=== PATIENT | male | born 1950 | race Caucasian/White ===

== ENCOUNTER 2018-03-09 17:04 | Inpatient (IN) | payer OTHER ==
[~2018-03-09] VITALS: Ht 180.3 cm; Wt 124.0 kg
--- NOTE | ~2018-03-09 | CATHLAB ---
[facility] [address] [place] [address] INVASIVE PROCEDURE REPORT Name: DARA GUALLPA Room #: 214-P [facility] IN ..#: [id number] Admission: 03/09/18 Attend Phys: Tam Moralez MD Discharge: 03/11/18 Date of : 50 Date of Service: 03/12/18 0901 Report #: [id number] THIS REPORT FOR: //name// APPROVED REPORT Study performed: 03/10/2018 09:22:12 Patient Details Patient Status: In-Patient Room #: The patient is a 67 year-old male Event Personnel Diego Stokes Beater Boss, John Paz RN RN, Imani Sauer RTR, Robin Khan Roberta Monitor Procedures Performed Art Access - R femoral artery* 80188 Initial Mod Sed Same Phys/QHP Gr5y 668344 18654 Mod Sed Same Phys/QHP Ea 770624 Left Heart Cath w/or w/o Coronaries 7237904 [facility] Aortogram Abdominal Peripheral Angio 961409 PTCA Single Vessel CIRC 7930953 PCISINGLE GRAY Place w/wo Plasty Single LAD 215061 Indication Chest pain Procedure Narrative The Right Groin^ was infiltrated with 1% Lidocaine subcutaneous anesthesia. A PINNACLE 6FR Sheath #[id number] sheath was inserted into the RFA^. Coronary angiography was performed using coronary diagnostic catheters. The right coronary system was accessed and visualized with a JR4 catheter. The left coronary system was accessed and visualized with a JL4 catheter. The left ventricle was accessed and visualized with a STR.PIG catheter. The patient tolerated the procedure well and there were no complications associated with the procedure. There was no hematoma. Intraoperative Conscious Sedation Fentanyl 100 mcg Versed 2 mg Fluoro Time: 23.30 minutes Dose: DAP 65058.80 cGycm2 3095 mGy Contrast Type and Amount: Visipaque 200 ml Hemodynamics The aortic pressure is 183/77 mmHg with a mean of 53 mmHg. The left [facility] [address] [place] [address] INVASIVE PROCEDURE REPORT Name: RODGEREVELYNDARA Room #: 214-P [facility] IN ..#: [id number] Admission: 03/09/18 Attend Phys: Tam Moralez MD Discharge: 03/11/18 Date of : 50 Date of Service: 03/12/18 0901 Report #: [id number] ventricular pressure is 173/-1 mmHg with a mean of mmHg. The left ventricular end diastolic pressure is 26 mmHg. PCI Technique Lesion Percutaneous coronary intervention was performed on the acute marginal segment(s)mid circumflex artery segment. A LAUNCHER 6FR AR1 #999005 Guide Catheter was used to engage the ostium. A Luge Wire .014 x 182CM #[id number] Interventional Guidewire was used to cross the lesion. BALLOON DILATION A Balloon catheter Sprinter OTW 2.5 x 15 #[id number] was inserted and inflated up to 16atm for 43seconds. 2ND BALLOON WAS A MOZEC NC 3.0 X13MM. 1ST INFLA.20ATM FOR 32 SEC - 2ND INFLA. 22ATM FOR 32 SEC. 3RD BALLOON: NC TREK 3.71D16XB 1ST IFLA.20 MELANIE FOR 36 SEC PCI Technique Lesion 2 Percutaneous coronary intervention was performed on the mid left anterior descending artery segment. A LAUNCHER 6FR EBU 4 #171310 Guide Catheter was used to engage the LAD ostium. Balloon Dilation A Balloon catheter Sprinter OTW 2.5 x 15 #[id number] was inserted and inflated up to 6atm for 11seconds. Additional Inflation: 8atm for 19seconds. Additional Inflation: 6atm for 10seconds. 4TH INFLA. 14ATM FOR 27SEC. Stent Deployment A stent 3.0mm x 17mm EluNir RX was inserted and inflated up to 14atm for 23seconds. Additional Inflation: 18atm for 22seconds. PCI Technique Lesion Percutaneous coronary intervention was performed on the mid left anterior descending artery segment. STENT DEPLOYMENT A stent RESOLUTE ANGELINA OTW 3.0 X 15 #[id number] was inserted and inflated up to 16atm for 23seconds. Additional Inflation: 20atm for 22seconds. THIS STENT PLACED POXIMAL TO THE ELUNIR STENT. PCI Technique Lesion 3 Percutaneous coronary intervention was performed on the lateral first obtuse marginal branch segment. A LAUNCHER 6FR EBU 4 #040727 Guide Catheter was used to engage the ostium. A Luge Wire .014 x 182CM #[id number] Interventional Guidewire was used to cross the lesion. [facility] [address] [place] [address] INVASIVE PROCEDURE REPORT Name: DARA GUALLPA Room #: 214-P DIS IN M.Baljeet.#: [id number] Admission: 03/09/18 Attend Phys: Tam Moralez MD Discharge: 03/11/18 Date of : 50 Date of Service: 03/12/18 0901 Report #: [id number] Balloon Dilation A Balloon catheter Sprinter OTW 2.25 x 12 #[id number] was inserted and inflated up to 8atm for 24seconds. Additional Inflation: 12atm for 49seconds. 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 Previously placed 24 mm long Promus stent 2.75. Focal area within the stent postdilated with a noncompliant balloon 3.25 up to 3.4 mm yielding 0% residual This is filling a moderately large OM system. I did not re-stent this segment. #2 successful PTCA stent of complex proximal LAD lesion difficult dilatation initial placement of a 30 by 17Elunir drug-eluting stent post I to 3.2 mm. With proximal dissection Then placement of a 30 by 15 [place] drug-eluting stent which slightly overlap the proximal edge of the prior stent. All postdilated 20 melanie with stent balloon. 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 This was dilated through the stent placed in the LAD. With a residual of less than 30% so 8 good result obtained. #5 normal left ventricular size with normal left ventricular size and function EF 65% #6 abdominal aorta is patent without aneurysm. Single bilateral renal arteries remain patent Recommendations and plan: Continue aggressive risk factor modification. Dual antiplatelet therapy indefinitely with this evidence of in-stent restenosis and now 2 new stents placed to the LAD system. Patient is feeling medically stable for transfer to the CCU. We'll follow post stent protocol. This is in the setting of a non-STEMI. <ELECTRONICALLY SIGNED> By: Diego Stokes MD, [facility] 03/12/18900 0 0 Diego Stokes MD, FACC /INF
--- NOTE | ~2018-03-09 | EKG ---
[address] [address] ELECTROCARDIOGRAM REPORT Name: DARA GUALLPA Room #: 214-P ADM IN M.R.#: [id number] Admission: 03/09/18 Attend Phys: Tam Moralez MD Discharge: Date of : 50 Report #: [id number] THIS REPORT FOR: //name// [facility] ED Test Date: 2018-03-09 Test Time: 17:22:07 Pat Name: DARA GUALLPA Department: Room: 214 Gender: M Weather Forcaster: GEOVANNI : 1950 Requested By: Yevgeniy Horton Order Number: [id number] MD: Bobby Garcia Measurements Intervals [place] Rate: 50 P: -5 DC: 139 QRS: -29 QRSD: 103 T: 26 QT: 475 QTc: 434 Interpretive Statements Sinus bradycardia Abnormal R-wave progression, early transition Left ventricular hypertrophy No previous ECG available for comparison Electronically Signed On 03-10-2018 9:14:02 DYE EXPERT by Bobby Garcia [email or web address] <ELECTRONICALLY SIGNED> By: Bobby Garcia MD 03/10/18 0914 172 1722 Bobby Garcia MD /YEIMI
--- NOTE | ~2018-03-09 | HC ---
[facility] [place] [address] CONSULTATION Name: DARA GUALLPA Room #: 214-P ADM IN M.R.#: [id number] Admission: 03/09/18 Attend Phys: Tam Moralez MD Discharge: Date of : 50 Report #: [id number] THIS REPORT FOR: //name// CC: Tam Olguin CARDIOLOGY CONSULTATION HISTORY OF PRESENT ILLNESS: The patient is a 67-year-old male. He presents via EMS with chest pain and pressure, which started sometime early this afternoon. He has been having on and off exertional chest pain for the last 4-5 days. Marked decrease in exercise tolerance, although he is relatively inactive. He denies any PND or orthopnea, but there has certainly been decreased exercise tolerance. He has had a stent placed exactly 3 years ago, 03/2015, at [facility]. He does not know which vessel and was told that there was a 60% blockage in another vessel. We do not have that report, but it would be helpful. He has been seen in [facility] and had, what he believes to be, a stress test this summer. MEDICATIONS: He has been compliant with only medications rosuvastatin and lisinopril. Ran out of aspirin a week ago. His other medications are allegedly Prozac, Desyrel, Protonix and Metamucil. ALLERGIES: VOLTAREN. SOCIAL HISTORY: He is retired. He is single, no children. He lives independently. Minimal alcohol use. No tobacco. FAMILY HISTORY: No premature coronary disease. PHYSICAL EXAMINATION: VITAL SIGNS: He does not appear to be in significant distress, but states he still has low-grade substernal discomfort. VITAL SIGNS: Blood pressure 150/80, pulse is 60s. HEENT: Eyes reveal no xanthelasmas. Pharynx is clear. NECK: Shows preserved upstrokes, without JVD or bruits. LUNGS: Clear. CARDIAC EXAMINATION: Regular rate and rhythm, S1, S2. There is no significant murmur or gallop. ABDOMEN: Soft. No HSM or abdominal bruit. EXTREMITIES: Reveal no edema. Distal pulses intact, but diminished. NEUROLOGIC: Nonfocal. SKIN: Warm and dry, without xanthoma or ulcer. MUSCULOSKELETAL: Mild arthritic changes. ASSESSMENT: 1. Aax-BQ-wycojebyh myocardial infarction. Positive troponin 0.11 (nonspecific [facility] [address] [place] [address] CONSULTATION Name: DARA GUALLPA Room #: 214-P [facility] IN M.R.#: [id number] Admission: 03/09/18 Attend Phys: Tam Moralez MD Discharge: Date of : 50 Report #: [id number] EKG changes, no acute infarct). 2. Coronary artery disease with history of stent placement, single vessel, one stent 03/2015. 3. Hypertension. 4. Hypercholesterolemia. 5. Depression. 6. Reflux. RECOMMENDATIONS AND PLAN: Sublingual nitro. Repeat EKG. CCU. We will repeat serial enzymes and EKG. Echo Doppler in the morning and proceed to the catheterization lab to delineate the anatomy. We will proceed sooner if I can get him pain free. The plan has been discussed with the patient; there is no family present. He has a primary care physician at [facility]. By: 1848 [id number] Diego Stokes MD, FACC /nt
--- NOTE | ~2018-03-09 | EKG ---
[address] [address] ELECTROCARDIOGRAM REPORT Name: DARA GUALLPA Room #: 214-P ADM IN M.R.#: [id number] Admission: 03/09/18 Attend Phys: Tam Moralez MD Discharge: Date of : 50 Report #: [id number] THIS REPORT FOR: //name// [facility] ED Test Date: 2018-03-09 Test Time: 18:41:58 Pat Name: DARA GUALLPA Department: Room: 214 Gender: M Director Diabetes: GEOVANNI : 1950 Requested By: Diego Stokes Order Number: [id number] MD: Bobby Garcia Measurements Intervals [place] Rate: 65 P: 9 [place]: 151 QRS: -36 QRSD: 97 T: 34 QT: 450 QTc: 468 Interpretive Statements Sinus rhythm Abnormal R-wave progression, early transition Left ventricular hypertrophy No previous ECG available for comparison Electronically Signed On 03-10-2018 9:14:24 PERSONAL LOAN SPECIALIST by Bobby Garcia [email or web address] <ELECTRONICALLY SIGNED> By: Bobby Garcia MD 03/10/18 0914 184 1841 Bobby Garcia MD /YEIMI
--- NOTE | ~2018-03-09 | 2DMMODE ---
[facility] [place] [address] 2 D/M-MODE ECHOCARDIOGRAM Name: DARA GUALLPA Room #: 214-P ADM IN M.R.#: [id number] Admission: 03/09/18 Attend Phys: Tam Moralez MD Discharge: Date of : 50 Date of Service: 03/10/18 0951 Report #: [id number] THIS REPORT FOR: //name// APPROVED REPORT Study performed: 03/10/2018 08:41:07 EXAM: Comprehensive 2D, Doppler, and color-flow Echocardiogram Patient Location: Echo lab Room #: 214 Status: routine BSA: 2.38 HR: 48 bpm BP: 135/66 mmHg Rhythm: Bradycardia/nsr Other Information Study Quality: Good Indications Non STEMI Chest Pain Hx: CAD, stent, HTN, HLP 2D Dimensions RVDd: 40.28 mm IVSd: 12.53 (7-11mm) LVOT Diam: 21.59 (18-24mm) LVDd: 50.16 mm PWd: 11.92 (7-11mm) Ascending Ao: 31.72 (22-36mm) LVDs: 30.43 (25-40mm) Aortic Root: 29.77 mm Volumes Left Atrial Volume (Systole) Single Plane 4CH: 67.90 mL Single Plane 2CH: 87.66 mL LA ESV Index: 35.00 mL/m2 Aortic Valve AoV Peak Orville.: 1.81 m/s AO Peak Gr.: 13.10 mmHg LVOT Max P.50 mmHg LVOT Max V: 1.27 m/s RENU Vmax: 2.58 cm2 Mitral Valve E/A Ratio: 1.4 [facility] [address] [place] [address] [place] [address] 2 D/M-MODE ECHOCARDIOGRAM Name: SALONIDARA Room #: [facility] IN ..#: [id number] Admission: 03/09/18 Attend Phys: Tam Moralez MD Discharge: Date of : 50 Date of Service: 03/10/18 0951 Report #: [id number] MV Decel. Time: 226.87 ms MV E Max Orville.: 0.87 m/s MV A Orville.: 0.61 m/s MV PHT: 65.79 ms IVRT: 64.59 ms Pulmonary Valve PV Peak Orville.: 1.15 m/s PV Peak Gr.: 5.25 mmHg Pulmonary Vein P Vein S: 0.72 m/s P Vein A: 0.31 m/s P Vein D: 0.54 m/s P Vein A Dur.: 110.7 msec P Vein S/D Ratio: 1.33 Tricuspid Valve TR Peak Orville.: 2.59 m/s RAP Estimate: 5.00 mmHg TR Peak Gr.: 26.83 mmHg PA Pressure: 32.00 mmHg Left Ventricle The left ventricle is normal size. There is normal LV segmental wall motion. Mild concentric left ventricular hypertrophy. Left ventricular systolic function is normal. LVEF is 55-60%. Moderate diastolic dysfunction is present (pseudonormal filling). Right Ventricle The right ventricle is normal size. The right ventricular systolic function is normal. Atria Left atrium is mildly dilated. The right atrium size is normal. Aortic Valve The aortic valve is normal in structure and mildly thickened. Trace to mild aortic regurgitation. There is no aortic valvular stenosis. Mitral Valve The mitral valve is normal in structure. Moderate mitral regurgitation. Tricuspid Valve The tricuspid valve is normal in structure. Mild tricuspid regurgitation. Estimated PAP is 30-35mmHg. [address] [address] 2 D/M-MODE ECHOCARDIOGRAM Name: [facility] Room #: [address] [place] [address] IN M.R.#: [id number] Admission: 03/09/18 Attend Phys: Tam Moralez MD Discharge: Date of : 50 Date of Service: 03/10/18 0951 Report #: [id number] Pulmonic Valve The pulmonary valve is normal in structure. Trace pulmonic regurgitation. Great Vessels The aortic root is normal in size. The ascending aorta is normal in size. IVC is normal in size and collapses >50% with inspiration. Pericardium There is no pericardial effusion. <Conclusion> The left ventricle is normal size. Mild concentric left ventricular hypertrophy. LVEF is 55-60%. Moderate diastolic dysfunction is present (pseudonormal filling). The right ventricle is normal size. Left atrium is mildly dilated. Trace to mild aortic regurgitation. Moderate mitral regurgitation. Mild tricuspid regurgitation. Estimated PAP is 30-35mmHg. The aortic root is normal in size. There is no pericardial effusion. <ELECTRONICALLY SIGNED> By: Diego Stokes MD, [facility] 03/10/18950 0 0 Diego Stokes MD, FACC /INF
--- NOTE | ~2018-03-09 | EKG ---
[address] [place] [address] ELECTROCARDIOGRAM REPORT Name: DARA GUALLPA Room #: 214-P ADM IN M.R.#: [id number] Admission: 03/09/18 Attend Phys: Tam Moralez MD Discharge: Date of : 50 Report #: [id number] THIS REPORT FOR: //name// [facility] Test Date: 2018-03-11 Test Time: 08:16:47 Pat Name: DARA GUALLPA Department: Room: 214 P Gender: M Dope Edger: EDITH : 1950 Requested By: Kathy Jorgensen Order Number: [id number] MD: Atul Escamilla Measurements Intervals [place] Rate: 49 P: -32 [place]: 152 QRS: -34 QRSD: 103 T: 8 QT: 475 QTc: 429 Interpretive Statements Sinus bradycardia Abnormal R-wave progression, early transition Compared to ECG 03/09/2018 18:41:58 Heart rate has slowed Electronically Signed On 03-11-2018 11:03:37 BUSINESS PROPOSAL REP by Atul Escamilla [email or web address] <ELECTRONICALLY SIGNED> By: Atul Escamilla MD, [facility] 03/11/18 1103 5 5 Atul Escamilla MD, [facility] /EPI
[2018-03-09 17:05] VITALS: BP 167/81
[2018-03-09] MEDS ORDERED: PROTONIX40 M1 PO (17:17)
[2018-03-09] MEDS ORDERED: LISINOPRIL10 MG PO (17:17)
[2018-03-09] MEDS ORDERED: CRESTOR10 MG PO (17:18)
[2018-03-09] MEDS ORDERED: DICYCLOMINE HCL20 MG PO (17:20)
[2018-03-09] MEDS ORDERED: CELECOXIB100 MG PO (17:21)
[2018-03-09] MEDS ORDERED: PROZAC20 MG PO (17:21)
[2018-03-09] MEDS ORDERED: TRAZODONE HCL50 MG PO (17:22)
[2018-03-09] MEDS ORDERED: TRIAMCINOLONE A80 G2 TOP (17:22)
[2018-03-09] MEDS ORDERED: MUPIROCIN22 GM TOP (17:23)
[2018-03-09] MEDS ORDERED: METAMUCIL1 EAC1 PO (17:23)
[2018-03-09 17:24] LABS: ABSOLUTE NEUTROPHILS 4.4 thou/uL (1.4-8.2); BASOPHILS 1.3 % (0.0-2.0); HEMATOCRIT 44.3 % (42.0-52.0); HEMOGLOBIN 15.3 gm/dL (14.0-18.0); LYMPHOCYTES 23.4 % (24.0-44.0); MCH 31.4 pg (26.0-34.0); MCHC 34.5 g/dL (28.0-37.0); MCV 90.9 fL (80.0-100.0); PLATELET COUNT 180 thou/uL (150-400); POLYS 65.3 % (36.0-66.0); RBC 4.87 mil/uL (4.50-6.00); RDW 13.3 % (10.5-14.5); WBC 6.8 thou/uL (4.0-11.0)
[2018-03-09] MEDS ORDERED: IBUPROFEN 800800 M1 PO (17:24)
[2018-03-09 17:31] LABS: CREATININE 1.1 mg/dL (0.7-1.3); POTASSIUM 3.7 mmol/L (3.5-5.1)
[2018-03-09 17:40] LABS: TROPONIN-I 0.11 ng/mL (<0.06)
[2018-03-09 18:32] VITALS: BP 157/82
[2018-03-09 20:03] VITALS: BP 145/79
[2018-03-09 21:00] VITALS: BP 126/70
[2018-03-09 21:37] VITALS: BP 130/66
[2018-03-09 23:47] VITALS: BP 136/62
[2018-03-10 04:31] VITALS: BP 107/70
[2018-03-10 07:14] LABS: CALCIUM 9.2 mg/dL (8.5-10.1); CREATININE 1.3 mg/dL (0.7-1.3); POTASSIUM 3.6 mmol/L (3.5-5.1)
[2018-03-10 07:30] VITALS: BP 135/66
[2018-03-10 12:19] LABS: CHOLESTEROL 170 mg/dL (<200); HDL CHOLESTEROL 39 mg/dL (>40); LDL CHOLESTEROL 107 mg/dL (<100); TC:HDL 4.4 Ratio (Not establshd); TRIGLYCERIDE 122 mg/dL (<150); VLDL 24 mg/dL (<40)
[2018-03-10 15:00] VITALS: BP 144/85
[2018-03-10 16:05] LABS: URINE BILIRUBIN NEGATIVE (Negative); URINE BLOOD 3+ (Negative); URINE CLARITY CLEAR; URINE COLOR YELLOW; URINE GLUCOSE-RANDOM* NEGATIVE (Negative); URINE KETONES NEGATIVE (Negative); URINE LEUKOCYTES NEGATIVE (Negative); URINE NITRITE NEGATIVE (Negative); URINE PROTEIN (DIPSTICK) 1+ (Negative); URINE UROBILINOGEN 0.2 E.U./dl (0.2-1.0)
[2018-03-10 16:13] LABS: BACTERIA None Seen /HPF (None Seen); CASTS None Seen /LPF (None Seen); CRYSTALS None Seen /LPF (None Seen); SQUAMOUS None Seen /LPF (0-3); URINE RBC >20 Many /HPF (0-2); URINE WBC None Seen /HPF (0-5)
[2018-03-10 20:07] VITALS: BP 132/71
[2018-03-10 23:16] VITALS: BP 149/64
[2018-03-11 05:12] VITALS: BP 134/66
[2018-03-11 05:36] LABS: HEMATOCRIT 39.3 % (42.0-52.0); HEMOGLOBIN 13.4 gm/dL (14.0-18.0); MCH 31.4 pg (26.0-34.0); MCHC 34.1 g/dL (28.0-37.0); MCV 92.1 fL (80.0-100.0); RBC 4.27 mil/uL (4.50-6.00); RDW 13.7 % (10.5-14.5); WBC 7.6 thou/uL (4.0-11.0)
[2018-03-11 05:54] LABS: CALCIUM 8.1 mg/dL (8.5-10.1); CREATININE 1.1 mg/dL (0.7-1.3); POTASSIUM 3.6 mmol/L (3.5-5.1); TOTAL BILIRUBIN 0.5 mg/dL (<0.1-1.0); TOTAL PROTEIN 5.9 g/dL (6.4-8.2)
[2018-03-11 05:58] LABS: TROPONIN-I 1.73 ng/mL (<0.06)
[2018-03-11 09:04] VITALS: BP 112/59
[2018-03-11] MEDS ORDERED: TOPROL XL25 MG PO (09:32)
[2018-03-11] MEDS ORDERED: EFFIENT10 MG PO (09:32)
[2018-03-11] MEDS ORDERED: ASPIRIN325 PO ×2 (09:32→12:06)
[2018-03-11] MEDS ORDERED: COZAAR 25 MG TA25 M1 PO (12:05)
[2018-03-11] MEDS ORDERED: LISINOPRIL10 MG PO (12:09)
[2018-03-11 13:06] VITALS: BP 112/59
== END 2018-03-11 16:20 | disposition home or self-care (01) | DRG 246 ==
LOC: ER 17:04 → 2N 18:18 → EROBS 18:18 → 2N 21:03
PROVIDERS: Emergency Medicine; Hospitalist; Nurse Practitioner Adult Health
DX: T82.855A Stenosis of coronary artery stent, initial encounter (principal); I21.4 Non-ST elevation (NSTEMI) myocardial infarction; Y83.8 Other surgical procedures as the cause of abnormal reaction of the patient, or of later complication, without mention of misadventure at the time of the procedure; E78.00 Pure hypercholesterolemia, unspecified; I10 Essential (primary) hypertension; K21.9 Gastro-esophageal reflux disease without esophagitis; F32.9 Major depressive disorder, single episode, unspecified; I25.10 Atherosclerotic heart disease of native coronary artery without angina pectoris; I48.91 Unspecified atrial fibrillation; E78.5 Hyperlipidemia, unspecified; Y92.89 Other specified places as the place of occurrence of the external cause; Z95.5 Presence of coronary angioplasty implant and graft; Z88.8 Allergy status to other drugs, medicaments and biological substances; Z79.82 Long term (current) use of aspirin; Z79.899 Other long term (current) drug therapy; I25.2 Old myocardial infarction
CPT/HCPCS: 10081

== ENCOUNTER 2018-04-29 21:10 | Emergency (ER) | payer OTHER ==
[~2018-04-29] VITALS: Ht 180.3 cm; Wt 117.9 kg
[~2018-04-29 21:10] MED LIST: ASPIRIN325 PO; CELECOXIB100 MG PO; COZAAR 25 MG TA25 M1 PO; CRESTOR10 MG PO; DICYCLOMINE HCL20 MG PO; EFFIENT10 MG PO; IBUPROFEN 800800 M1 PO; LISINOPRIL10 MG PO; METAMUCIL1 EAC1 PO; MUPIROCIN22 GM TOP; PROTONIX40 M1 PO; PROZAC20 MG PO; TOPROL XL25 MG PO; TRAZODONE HCL50 MG PO; TRIAMCINOLONE A80 G2 TOP
[2018-04-29 22:08] LABS: HEMATOCRIT 43.5 % (42.0-52.0); HEMOGLOBIN 14.9 gm/dL (14.0-18.0); MCH 31.3 pg (26.0-34.0); MCHC 34.2 g/dL (28.0-37.0); MCV 91.7 fL (80.0-100.0); RBC 4.75 mil/uL (4.50-6.00); RDW 13.1 % (10.5-14.5); WBC 5.4 thou/uL (4.0-11.0)
[2018-04-29 22:12] LABS: ANION GAP 8 mmol/L (7-16); BUN 15 mg/dL (7-18); CHLORIDE 105 mmol/L (98-107); CO2 28 mmol/L (21-32); CREATININE 1.1 mg/dL (0.7-1.3); GLUCOSE 99 mg/dL (74-106); POTASSIUM 3.7 mmol/L (3.5-5.1); SODIUM 141 mmol/L (136-145)
[2018-04-29 22:20] LABS: ALBUMIN 3.5 g/dL (3.4-5.0); LIPASE 183 U/L (73-393); SGOT 28 U/L (15-37); SGPT 32 U/L (30-65); TOTAL BILIRUBIN 0.4 mg/dL (<0.1-1.0); TOTAL PROTEIN 7.3 g/dL (6.4-8.2); TROPONIN-I <0.06 ng/mL (<0.06)
[2018-04-29 23:03] LABS: URINE BILIRUBIN NEGATIVE (Negative); URINE BLOOD 2+ (Negative); URINE CLARITY CLEAR; URINE COLOR YELLOW; URINE GLUCOSE-RANDOM* NEGATIVE (Negative); URINE KETONES NEGATIVE (Negative); URINE LEUKOCYTES-REFLEX NEGATIVE (Negative); URINE NITRITE-REFLEX NEGATIVE (Negative); URINE PROTEIN (DIPSTICK) TRACE (Negative); URINE SPECIFIC GRAVITY 1.025 (1.005-1.035); URINE UROBILINOGEN 0.2 E.U./dl (0.2-1.0)
[2018-04-29 23:13] LABS: BACTERIA-REFLEX 1-9 Few /HPF (None Seen); CASTS None Seen /LPF (None Seen); MUCUS 4-6 Moderate strn/LPF (None Seen); SQUAMOUS 0-3 Few /LPF (0-3); URINE RBC 3-10 Few /HPF (0-2); URINE WBC-REFLEX 0-5 Rare /HPF (0-5)
[2018-04-29 23:14] LABS: CRYSTALS None Seen /LPF (None Seen)
[2018-04-30 00:52] VITALS: BP 139/67
--- NOTE | 2018-05-01 08:30 | EKG ---
[place] [address] [place] [address] ELECTROCARDIOGRAM REPORT Name: DARA GUALLPA [id number] Admission: 04/29/18 Attend Phys: Discharge: 04/30/18 Date of : 50 Report #: [id number] THIS REPORT FOR: //name// [facility] ED Test Date: 2018-04-29 Test Time: 22:04:53 Pat Name: DARA GUALLPA Department: Room: Gender: M Butcher Scullion: JULI : 1950 Requested By: Paty Murray Order Number: [id number] MD: Atul Escamilla Measurements Intervals [place] Rate: 52 P: 0 [place]: 56 QRS: -33 QRSD: 102 T: 22 QT: 444 QTc: 413 Interpretive Statements Sinus rhythm Short [place] interval Abnormal R-wave progression, early transition Compared to ECG 03/11/2018 08:16:47 no significant change was found Electronically Signed On 05-01-2018 8:30:16 MICROSTRATEGY DEVELOPER by Atul Escamilla [email or web address] <ELECTRONICALLY SIGNED> By: Atul Escamilla MD, [facility] 05/01/1830 03 03 Atul Escamilla MD, [facility] /EPI
== END 2018-04-30 00:54 | disposition short-term general hospital (02) ==
LOC: ER 21:10
PROVIDERS: Student in an Organized Health Care Education/Training Program
DX: K57.90 Diverticulosis of intestine, part unspecified, without perforation or abscess without bleeding (principal); N39.0 Urinary tract infection, site not specified; N13.9 Obstructive and reflux uropathy, unspecified; N20.0 Calculus of kidney; F32.9 Major depressive disorder, single episode, unspecified; M19.90 Unspecified osteoarthritis, unspecified site; E78.5 Hyperlipidemia, unspecified; I10 Essential (primary) hypertension; K21.9 Gastro-esophageal reflux disease without esophagitis; Z88.6 Allergy status to analgesic agent; Z95.5 Presence of coronary angioplasty implant and graft; Z96.651 Presence of right artificial knee joint

== ENCOUNTER 2019-08-22 19:00 | Emergency (ER) | payer OTHER ==
[~2019-08-22] VITALS: Ht 180.3 cm; Wt 117.9 kg
[2019-08-22] MEDS ORDERED: PLAVIX 75 MG TA75 MG PO (19:18)
[2019-08-22] MEDS ORDERED: ZESTRIL40 MG PO (19:20)
[2019-08-22] MEDS ORDERED: ZETIA10 MG PO (19:20)
[2019-08-22] MEDS ORDERED: PROZAC20 MG PO (19:21)
[2019-08-22] MEDS ORDERED: ASPIRIN EC81 M1 PO (19:21)
[2019-08-22] MEDS ORDERED: PROTONIX40 M2 PO (19:21)
[2019-08-22] MEDS ORDERED: TRAZODONE HCL50 MG PO (19:22)
[2019-08-22] MEDS ORDERED: FLONASE 0.05%50 MCG NASAL (19:22)
[2019-08-22] MEDS ORDERED: MELATONIN10 M1 PO (19:23)
[2019-08-22] MEDS ORDERED: IBUPROFEN200 MG PO (19:23)
[2019-08-22] MEDS ORDERED: TYLENOL EXTRA500 MG PO (19:24)
[2019-08-22] MEDS ORDERED: SAW PALMETTO450 MG PO (19:24)
[2019-08-22 19:25] LABS: BASOPHILS 1.2 % (0.0-2.0); HEMATOCRIT 43.6 % (42.0-52.0); HEMOGLOBIN 14.9 gm/dL (14.0-18.0); LYMPHOCYTES 24.7 % (24.0-44.0); MCH 32.4 pg (26.0-34.0); MCHC 34.2 g/dL (28.0-37.0); MCV 94.7 fL (80.0-100.0); MONOCYTES 7.9 % (1.0-8.0); PLATELET COUNT 181 thou/uL (150-400); POLYS 62.2 % (36.0-66.0); RBC 4.61 mil/uL (4.50-6.00); RDW 13.6 % (10.5-14.5); WBC 6.5 thou/uL (4.0-11.0)
[2019-08-22] MEDS ORDERED: CENTRUM SILVER1 EAC7 PO (19:25)
[2019-08-22] MEDS ORDERED: GLUCOSAMINE &1 EACH PO (19:25)
[2019-08-22] MEDS ORDERED: METAMUCIL1 EAC1 PO (19:26)
[2019-08-22 19:33] LABS: ANION GAP 7 mmol/L (7-16); BUN 18 mg/dL (7-18); CALCIUM 8.4 mg/dL (8.5-10.1); CHLORIDE 106 mmol/L (98-107); CO2 27 mmol/L (21-32); CREATININE 1.2 mg/dL (0.7-1.3); GLUCOSE 82 mg/dL (74-106); POTASSIUM 3.9 mmol/L (3.5-5.1); SODIUM 140 mmol/L (136-145)
[2019-08-22 19:42] LABS: ALBUMIN 3.8 g/dL (3.4-5.0); DIRECT BILIRUBIN < 0.1 mg/dL (<0.1-0.2); SGOT 29 U/L (15-37); SGPT 40 U/L (30-65); TOTAL BILIRUBIN 0.4 mg/dL (0.2-1.0); TOTAL PROTEIN 6.9 g/dL (6.4-8.2); TROPONIN-I <0.06 ng/mL (<0.06)
[2019-08-22 20:59] VITALS: BP 155/71
--- NOTE | 2019-08-23 08:59 | EKG ---
[facility] [place] [address] ELECTROCARDIOGRAM REPORT Name: DARA GUALLPA Room #: [facility].#: [id number] Admission: 08/22/19 Attend Phys: Discharge: 08/22/19 Date of : 50 Report #: [id number] THIS REPORT FOR: cc: SREE RUEDA Physician not on staff Atul Escamilla MD [facility] THIS REPORT FOR: //name// [facility] ED Test Date: 2019-08-22 Test Time: 19:11:32 Pat Name: DARA GUALLPA Department: Room: Gender: Keg Inspector: [facility] : 1950 Requested By: Lalitha Mckeon Order Number: [id number] MD: Atul Escamilla Measurements Intervals [place] Rate: 52 P: -8 MT: 154 QRS: -34 QRSD: 99 T: 33 QT: 425 QTc: 396 Interpretive Statements Sinus rhythm Abnormal R-wave progression, early transition Left ventricular hypertrophy Compared to ECG 04/29/2018 22:04:53 No significant change was found Electronically Signed On 08-23-2019 8:57:23 CDT by Atul Escamilla [email or web address] <ELECTRONICALLY SIGNED> By: Atul Escamilla MD, [facility] 08/23/19 0857 10 10 Atul Escamilla MD, [facility] /EPI
== END 2019-08-22 21:02 | disposition home or self-care (01) ==
LOC: ER 19:00
PROVIDERS: Emergency Medicine
DX: R07.89 Other chest pain (principal); M19.90 Unspecified osteoarthritis, unspecified site; I10 Essential (primary) hypertension; K21.9 Gastro-esophageal reflux disease without esophagitis; E78.00 Pure hypercholesterolemia, unspecified; Z88.6 Allergy status to analgesic agent; Z79.899 Other long term (current) drug therapy; Z79.82 Long term (current) use of aspirin; Z95.5 Presence of coronary angioplasty implant and graft; Z96.651 Presence of right artificial knee joint; Z87.442 Personal history of urinary calculi

== ENCOUNTER → 2019-08-23 | Outpatient (CLI) | payer OTHER ==
[~2019-08-23] MED LIST changes: +ASPIRIN EC81 M1 PO; +BENICAR40 MG PO; +CENTRUM SILVER1 EAC7 PO; +FLONASE 0.05%50 MCG NASAL; +GLUCOSAMINE &1 EACH PO; +IBUPROFEN200 MG PO; +MELATONIN10 M1 PO; +PLAVIX 75 MG TA75 MG PO; +PROTONIX40 M2 PO; +SAW PALMETTO450 MG PO; +TYLENOL EXTRA500 MG PO; +ZESTRIL40 MG PO; +ZETIA10 MG PO
== END ==
LOC: SJCVCIMAG 10:35
PROVIDERS: ATTEND Internal Medicine Cardiovascular Disease
DX: R00.1 Bradycardia, unspecified (principal); I25.10 Atherosclerotic heart disease of native coronary artery without angina pectoris; I10 Essential (primary) hypertension; E78.5 Hyperlipidemia, unspecified; E78.00 Pure hypercholesterolemia, unspecified; R05 Cough; Z79.82 Long term (current) use of aspirin; Z79.899 Other long term (current) drug therapy; Z88.8 Allergy status to other drugs, medicaments and biological substances; Z82.49 Family history of ischemic heart disease and other diseases of the circulatory system; Z98.61 Coronary angioplasty status

== ENCOUNTER 2019-08-28 06:29 | Observation (INO) | payer OTHER ==
[2019-08-28] VITALS (8 sets, daily range): BP systolic 115–155; BP diastolic 54–80
[~2019-08-28] VITALS: Ht 180.3 cm; Wt 120.2 kg
[~2019-08-28 06:29] MED LIST changes: -BENICAR40 MG PO
[2019-08-28] MEDS ORDERED: BENICAR40 MG PO (07:08)
[2019-08-28 07:20] LABS: HEMATOCRIT 41.5 % (42.0-52.0); HEMOGLOBIN 14.2 gm/dL (14.0-18.0); MCH 32.5 pg (26.0-34.0); MCHC 34.2 g/dL (28.0-37.0); RBC 4.37 mil/uL (4.50-6.00); RDW 13.8 % (10.5-14.5); WBC 6.2 thou/uL (4.0-11.0)
[2019-08-28 07:30] LABS: CALCIUM 8.1 mg/dL (8.5-10.1); CREATININE 1.2 mg/dL (0.7-1.3); POTASSIUM 3.6 mmol/L (3.5-5.1)
--- NOTE | 2019-08-28 08:59 | EKG ---
[facility] [place] [address] ELECTROCARDIOGRAM REPORT Name: DARA GUALLPA Room #: [facility]#: [id number] Admission: 08/28/19 Attend Phys: Diego Stokes MD, Discharge: Date of : 50 Report #: [id number] THIS REPORT FOR: cc: FAM - Family physician unknown FAM - Family physician unknown Atul Escamilla MD [facility] THIS REPORT FOR: //name// [facility] Test Date: 2019-08-28 Test Time: 07:07:03 Pat Name: DARA GUALLPA Department: Room: Gender: Winding Operator: Baljete ALMODOVAR : 1950 Requested By: Diego Stokes Order Number: [id number] MD: Atul Escamilla Measurements Intervals [place] Rate: 49 P: -45 [place]: 148 QRS: -33 QRSD: 103 T: 23 QT: 464 QTc: 419 Interpretive Statements Sinus bradycardia Left axis deviation Abnormal R-wave progression, early transition Compared to ECG 08/22/2019 19:11:32 No significant change was found Electronically Signed On 08-28-2019 8:56:59 CDT by Atul Escamilla [email or web address] <ELECTRONICALLY SIGNED> By: Atul Escamilla MD, [facility] 08/28/19 0856 6 6 Atul Escamilla MD, [facility] /EPI
--- NOTE | 2019-08-28 11:30 | NUR ---
CONTINUES TO STATE HAVING PAIN IN CHEST AFTER CATH PROCEDURE. EKG DONE AND SHOWN TO DR GAXIOLA. PT NOW IN A FIB. WAS IN NSR UPON ARRIVAL AND POST CATH. ORDERS GIVEN BY DR GAXIOLA. HR 95-125, VARIES, IRREGULAR. AMIODARONE BOLUS STARTED.
--- NOTE | 2019-08-28 17:45 | NUR ---
PT HAD 7 BEAT RUN OF VTACH. DEBORAH INSPECTOR RECEIVING AWARE. NO NEW ORDERS. PT BRADYCARDIC SO AMIO GTT STOPPED.
--- NOTE | 2019-08-28 17:46 | NUR ---
PT CARE ASSUMED APPROX 1520. ASSESSMENT CHARTED. DENIES SOA. REPORTS ADEQUATE PAIN MANAGEMENT OF NONCARDIAC CHEST PAIN AFTER MEDS GIVEN. PT ARRIVED TO UNIT POST CATH BUT HAD ALREADY BEEN RECOVERED AND BEDREST AND POST CATH IVF WERE COMPLETE. SCANT AMOUNT OF DRIED BLOOD TO RIGHT GROIN POST CATH SITE. NO FURTHER BLEEDING NOTED. GROIN SITE OTHERWISE INTACT. PT WAS ON AMIO DUE TO AFIB RVR. GTT STOPPED AT THIS TIME PER DEBORAH BOILER ERECTOR ORDER. PT UP WITH STEADY GAIT. TOLERATING POC. NO DISTRESS NOTED.
--- NOTE | 2019-08-28 18:16 | CATHLAB ---
[facility] [place] [place] [address] INVASIVE PROCEDURE REPORT Name: DARA GUALLPA Room #: 204-P [facility] MToddRTodd#: [id number] Admission: 08/28/19 Attend Phys: Diego Stokes MD, Discharge: Date of : 50 Report #: [id number] THIS REPORT FOR: cc: FAM - Family physician unknown FAM - Family physician unknown Diego Stokes MD [facility] ~ APPROVED REPORT Study performed: 08/28/2019 07:32:32 Patient Details Patient Status: Out-Patient Room #: The patient is a 69 year-old male Event Personnel Diego Stokes Medical Delivery Driver, Imani Sauer, Susannah Khan David Monitor, Amber Kelly RN industrial locomotive operator Performed Art Access - R femoral artery* Left Heart Cath w/or w/o Coronaries [id number] [facility] GRAY Place w/wo Plasty Single CIRC 296147 GRAY Place w/wo Plasty Single RCA 553781 Hemostasis w/ Mynx 69301 Initial Mod Sed Same Phys/QHP Gr5y 475117 54234 Mod Sed Same Phys/QHP Ea 549814 Indication Positive stress test, Chest pain Procedure Narrative The Right Groin^ was infiltrated with 1% Lidocaine subcutaneous anesthesia. A PINNACLE 6FR Sheath #[id number] sheath was inserted into the RFA. Coronary angiography was performed using coronary diagnostic catheters. The right coronary system was accessed and visualized with a 6FR AR MOD #[id number] catheter. The left coronary system was accessed and visualized with a JL4 catheter. The left ventricle was accessed and visualized with a Pigtail catheter. Left ventricular/Aortic Valve gradient assessed via catheter pullback. Left ventriculogram was performed in 30 degree projection. Closure device was deployed with a 6 Fr MYNXGRIP 6/7F #[id number]. The patient tolerated the procedure well and there were no complications associated with the procedure. There was no hematoma. Intraoperative Conscious Sedation [facility] [address] [place] [address] INVASIVE PROCEDURE REPORT Name: DARA GUALLPA Room #: 204-P [facility]#: [id number] Admission: 08/28/19 Attend Phys: Diego Stokes, Discharge: Date of : 50 Report #: [id number] Sedation start time: 07:57 Case end Time: 09:26 Fentanyl 150 mcg Versed 3 mg Fluoro Time: 14.20 minutes Dose: DAP 74941.00 cGycm2 2543 mGy Contrast Type and Amount: Omnipaque 275 ml Hemodynamics The aortic pressure is 186/78 mmHg with a mean of 121 mmHg. The left ventricular pressure is 183/20 mmHg with a mean of mmHg. The left ventricular end diastolic pressure is 38 mmHg. PCI Technique Lesion Percutaneous coronary intervention was performed on the proximal right coronary artery. A LAUNCHER 6FR JR 4 #[id number] Guide Catheter was used to engage the ostium. A Luge Wire .014 x 182CM #[id number] Interventional Guidewire was used to cross the lesion. BALLOON DILATION A Balloon catheter Sprinter OTW 2.5 x 15 #[id number] was inserted and inflated up to 8.00atm for 22seconds. Additional Inflation: 6.00atm for 10seconds. STENT DEPLOYMENT A drug-eluting stent RESOLUTE ANGELINA OTW 2.5 X 30 #[id number] was inserted and inflated up to 14.00atm for 26seconds. Additional Inflation: 16.00atm for 16seconds. A drug-eluting stent Resolute [place] OTW 2.5 x 8 was inserted and deployed proximal to 2.5 x 30 Resolute Angelina OTW. Inflated to 18 kaity for 19 seconds Additional inflation: 20 kaity for 15 seconds PCI Technique Lesion 2 Percutaneous Coronary Intervention was performed on the mid circumflex artery segment. A LAUNCHER 6FR AR1 #[id number] Guide Catheter was used to engage the ostium. A Luge Wire .014 x 182CM #[id number] Interventional Guidewire was used to cross the lesion. Stent Deployment A drug-eluting stent RESOLUTE ANGELINA OTW 2.5 X 12 #[id number] was inserted and inflated up to 12.00atm for 27seconds. Additional Inflation: 10atm for 14seconds. Conclusion 1. Successful PTCA stent of a high-grade proximal long RCA lesion. Placement of a two 5 x 30 and two 5 x 8 resolute Angelina drug-eluting [address] [address] INVASIVE PROCEDURE REPORT Name: DARA GUALLPA Room #: 204-P [facility] EVELIO M.R.#: [id number] Admission: 08/28/19 Attend Phys: Diego Stokes, Discharge: Date of : 50 Report #: [id number] stents proximal to proximal mid vessel YVONNE grade III flow 0% residual. The more proximal 2.5 x 8 was placed for a proximal dissection after the initial stent excellent result obtained brisk flow into the dominant distal vessel. 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 Proximal OM stents were mildly restenosed. 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 #4 the LAD is mild irregularities previously placed proximal sense of mild in-stent restenosis diffusely diseased around the apex. #5 normal left ventricular size and subtle anterior apical wall leg EF 45 to 50% range. Recommendations and plan: Continue aggressive risk factor modification. Dual antiplatelet therapy has been initiated. Patient has gone into an atrial fibrillation with a controlled ventricular response. Will treat accordingly. Transfer to CCU to follow post stent protocol. Amiodarone drip initiated for atrial fibrillation. <ELECTRONICALLY SIGNED> By: Diego Stokes MD, FACC 08/28/191812 12 12 Diego Stokes MD, FACC /INF
[2019-08-29 00:20] VITALS: BP 124/58
[2019-08-29 05:06] VITALS: BP 162/68
[2019-08-29 05:38] LABS: HEMATOCRIT 39.2 % (42.0-52.0); HEMOGLOBIN 13.4 gm/dL (14.0-18.0); MCH 32.6 pg (26.0-34.0); MCHC 34.2 g/dL (28.0-37.0); MCV 95.3 fL (80.0-100.0); RBC 4.12 mil/uL (4.50-6.00); RDW 13.8 % (10.5-14.5); WBC 7.6 thou/uL (4.0-11.0)
[2019-08-29 06:05] LABS: ALBUMIN 3.2 g/dL (3.4-5.0); CALCIUM 7.9 mg/dL (8.5-10.1); CREATININE 1.1 mg/dL (0.7-1.3); POTASSIUM 3.9 mmol/L (3.5-5.1); TOTAL BILIRUBIN 0.3 mg/dL (0.2-1.0); TOTAL PROTEIN 5.9 g/dL (6.4-8.2)
[2019-08-29 06:17] LABS: TROPONIN-I 4.41 ng/mL (<0.06)
[2019-08-29] MEDS ORDERED: TOPROL XL25 MG PO (07:15)
[2019-08-29] MEDS ORDERED: EFFIENT10 MG PO (07:15)
--- NOTE | 2019-08-29 08:14 | EKG ---
[facility] [place] [place] [address] ELECTROCARDIOGRAM REPORT Name: DARA GUALLPA Room #: 204-P [facility] M..#: [id number] Admission: 08/28/19 Attend Phys: Diego Stokes MD, Discharge: Date of : 50 Report #: [id number] THIS REPORT FOR: cc: FAM - Family physician unknown FAM - Family physician unknown Atul Escamilla MD [facility] ~ THIS REPORT FOR: //name// [facility] Test Date: 2019-08-28 Test Time: 11:02:33 Pat Name: DARA GUALLPA Department: Room: Gender: Drill Hand: Baljeet ALMODOVAR : 1950 Requested By: Diego Stokes Order Number: [id number] MD: Atul Escamilla Measurements Intervals [place] Rate: 111 P: GA: QRS: -37 QRSD: 101 T: 75 QT: 359 QTc: 488 Interpretive Statements Atrial fibrillation Left axis deviation Abnormal R-wave progression, early transition Borderline ST depression, anterolateral leads Borderline prolonged QT interval Compared to ECG 08/28/2019 07:07:03 ST (T wave) deviation now present Sinus bradycardia no longer present Electronically Signed On 08-29-2019 8:12:01 CDT by Atul Escamilla [email or web address] <ELECTRONICALLY SIGNED> By: Atul Escamilla MD, [facility] 08/29/19811 01 01 Atul Escamilla MD, [facility] /EPI
[2019-08-29 08:25] VITALS: BP 162/68
--- NOTE | 2019-08-29 08:31 | EKG ---
[facility] [place] [address] ELECTROCARDIOGRAM REPORT Name: DARA GUALLPA Room #: 204-[facility] M.R.#: [id number] Admission: 08/28/19 Attend Phys: Diego Stokes MD, Discharge: Date of : 50 Report #: [id number] THIS REPORT FOR: cc: FAM - Family physician unknown FAM - Family physician unknown Atul Escamilla MD [facility] ~ THIS REPORT FOR: //name// [facility] Test Date: 2019-08-29 Test Time: 07:02:46 Pat Name: DARA GUALLPA Department: Room: 204 Gender: M Receptionist Telephone Operator: Baljeet ALMODOVAR : 1950 Requested By: Diego Stokes Order Number: [id number] MD: Atul Escamilla Measurements Intervals [place] Rate: 56 P: -26 CA: 145 QRS: -40 QRSD: 102 T: 32 QT: 463 QTc: 447 Interpretive Statements Sinus bradycardia Abnormal R-wave progression, early transition Left ventricular hypertrophy Inferior infarct, old Compared to ECG 08/28/2019 07:07:03 Sinus rhythm has replaced atrial fibrillation Electronically Signed On 08-29-2019 8:29:53 CDT by Atul Escamilla [email or web address] <ELECTRONICALLY SIGNED> By: Atul Escamilla MD, [facility] 08/29/19828 1 1 Atul Escamilla MD, [facility] /EPI
[2019-08-29 11:27] VITALS: BP 160/76
--- NOTE | 2019-08-29 13:04 | NUR ---
PT CARE ASSUMED APPROX 0700. ASSESSMENT CHARTED. PT DENIES SOA. REPORTED ADEQUATE PAIN MANAGEMENT OF NONCARDIAC CHEST PAIN. UP WITH STEADY GAIT. RIGHT GROIN POST CATH SITE C/D/I. DISCHARGED AT THIS TIME. DISCHARGE EDUCATION DONE WITH MEDICAL TEAM AND REINFORCED BY THIS NURSE. PT DENIES QUESTIONS OR CONCERNS REGARDING POST HOSPITAL CARES AND F/U. IV OUT, TELE OFF. PT ESCORTED OFF UNIT BY NURSE AT THIS TIME.
== END 2019-08-29 13:07 | disposition home or self-care (01) ==
LOC: CATH 06:29 → 2N 09:24 → CATH 10:22 → 2N 15:30 → CATH 15:30 → 2N 08-29 13:07
PROVIDERS: ADMIT Internal Medicine Cardiovascular Disease
DX: I25.10 Atherosclerotic heart disease of native coronary artery without angina pectoris (principal); I10 Essential (primary) hypertension; E78.5 Hyperlipidemia, unspecified; I48.0 Paroxysmal atrial fibrillation
CPT/HCPCS: 10081

== ENCOUNTER → 2019-11-29 | Outpatient (CLI) | payer OTHER ==
[~2019-11-29] MED LIST changes: +BENICAR40 MG PO
== END ==
LOC: SJCVC 11:40
PROVIDERS: ATTEND Internal Medicine Cardiovascular Disease
DX: I25.10 Atherosclerotic heart disease of native coronary artery without angina pectoris (principal); E78.00 Pure hypercholesterolemia, unspecified; I10 Essential (primary) hypertension; Z79.899 Other long term (current) drug therapy

== ENCOUNTER → 2020-08-27 | Outpatient (CLI) | payer OTHER | LOC: SJCVCIMAG 10:21 | PROVIDERS: ATTEND Internal Medicine Cardiovascular Disease | DX: R94.31 Abnormal electrocardiogram [ECG] [EKG] (principal); I49.3 Ventricular premature depolarization; R07.89 Other chest pain; R53.83 Other fatigue; I25.10 Atherosclerotic heart disease of native coronary artery without angina pectoris; E78.5 Hyperlipidemia, unspecified; I10 Essential (primary) hypertension; R06.09 Other forms of dyspnea; E66.9 Obesity, unspecified; Z79.82 Long term (current) use of aspirin; Z79.899 Other long term (current) drug therapy; Z98.61 Coronary angioplasty status ==

== ENCOUNTER → 2020-09-23 | Outpatient (CLI) | payer OTHER | LOC: SJCVCIMAG 13:47 | PROVIDERS: ATTEND Internal Medicine Cardiovascular Disease | DX: R94.31 Abnormal electrocardiogram [ECG] [EKG] (principal); I08.3 Combined rheumatic disorders of mitral, aortic and tricuspid valves; I27.20 Pulmonary hypertension, unspecified; I48.0 Paroxysmal atrial fibrillation; I11.9 Hypertensive heart disease without heart failure; E78.00 Pure hypercholesterolemia, unspecified; I25.10 Atherosclerotic heart disease of native coronary artery without angina pectoris; R00.1 Bradycardia, unspecified; I21.4 Non-ST elevation (NSTEMI) myocardial infarction; R00.2 Palpitations; Z72.89 Other problems related to lifestyle; Z79.899 Other long term (current) drug therapy ==

== ENCOUNTER → 2021-03-09 | Outpatient (CLI) | payer OTHER | END | disposition home or self-care (01) | LOC: SJCVC 15:24 | PROVIDERS: ATTEND Internal Medicine Cardiovascular Disease | DX: R00.1 Bradycardia, unspecified (principal); R94.31 Abnormal electrocardiogram [ECG] [EKG]; I25.10 Atherosclerotic heart disease of native coronary artery without angina pectoris; I10 Essential (primary) hypertension; E78.00 Pure hypercholesterolemia, unspecified; I48.0 Paroxysmal atrial fibrillation; Z79.01 Long term (current) use of anticoagulants; Z88.8 Allergy status to other drugs, medicaments and biological substances; Z95.5 Presence of coronary angioplasty implant and graft; Z72.89 Other problems related to lifestyle; Z79.82 Long term (current) use of aspirin; Z79.899 Other long term (current) drug therapy; Z82.49 Family history of ischemic heart disease and other diseases of the circulatory system; Z95.818 Presence of other cardiac implants and grafts ==